=== PATIENT | male | born 1955 | race Hispanic/Latino ===

== ENCOUNTER → 2018-06-08 | Outpatient (CLI) | payer MEDICARE, BC ==
--- NOTE | 2018-06-08 15:30 | Diagnostic Imaging Report ---
EXAM: CT Chest WITHOUT contrast 06/08/2018 2:14 PM INDICATION: Pulmonary nodule. Hypertension. Cholecystectomy. Chest pain COMPARISON: None TECHNIQUE: Chest was scanned utilizing a multidetector helical scanner from the lung apex through the level of the adrenal glands without administration of IV contrast. Absence of intravenous contrast decreases sensitivity for detection of lymphadenopathy and vascular pathology. Coronal and sagittal reformations were obtained. Routine protocol was performed. IV CONTRAST: None RADIATION DOSE: Total DLP: 530.83 mGy*cm Estimated effective dose: (DLP x 0.014 x size factor) mSv COMPLICATIONS: None FINDINGS: LINES/ TUBES: None. LUNGS AND AIRWAYS: There are mild chronic appearing changes in the lungs with minimal scarring/atelectasis at the lung bases. Airways are normal. No pulmonary nodule is seen. PLEURA: The pleural spaces are clear. HEART AND MEDIASTINUM: The thyroid gland is normal. No mediastinal, hilar or axillary lymphadenopathy. The heart is normal in size. There is scattered atherosclerotic calcification in the coronary arteries, aorta and branch vessels. There is no pericardial effusion. UPPER ABDOMEN: Small hiatal hernia BONES: The visualized bony thorax is within normal limits. SOFT TISSUES: Unremarkable. IMPRESSION: No pulmonary nodule is seen. Mild chronic appearing changes in the lungs with minimal scarring/atelectasis at the lung bases. Signed by: Dr. Eliud Hamm M.D. on 06/08/2018 3:27 PM
== END ==
LOC: CT 14:08
PROVIDERS: ATTEND Family Medicine
DX: R91.1 Solitary pulmonary nodule (principal)
CPT/HCPCS: 71250